=== PATIENT | male | born 1940 | race Two or more races ===

== ENCOUNTER 2024-03-30 12:08 | Outpatient (CLI) | payer OTHER | END 2024-03-30 12:14 | disposition home or self-care (01) | LOC: SONOGRAMA 12:08 | DX: M25.511 Pain in right shoulder (principal) ==

== ENCOUNTER 2024-07-27 11:41 | Outpatient (CLI) | payer OTHER | END 2024-07-27 11:47 | disposition home or self-care (01) | LOC: SONOGRAMA 11:41 | DX: N18.30 Chronic kidney disease, stage 3 unspecified (principal) ==